=== PATIENT | male | born 1990 | race Two or more races ===

== ENCOUNTER 2020-09-15 22:36 | Emergency (ER) | payer SELFPAY ==
[~2020-09-15] VITALS: Ht 182.9 cm; Wt 105.0 kg
[2020-09-15] MEDS ORDERED: LEVETIRACETAM 500MG PREMIX 100 ML IV ONE (23:00)
[2020-09-15] MEDS ORDERED: SODIUM CHLORIDE 0.9% 1,000 ML IV ONE (23:00)
[2020-09-15 23:24] LABS: CHLORIDE 109 mEq/L (98-107)
[2020-09-16 00:03] LABS: CLARITY URINE CLEAR (CLEAR); COLOR URINE YELLOW (YELLOW); KETONES URINE NEGATIVE (NEGATIVE); LEUKOCYTE ESTERASE URINE NEGATIVE (NEGATIVE); NITRITE URINE NEGATIVE (NEGATIVE); OCCULT BLOOD URINE NEGATIVE (NEGATIVE); PROTEIN URINE NEGATIVE (NEGATIVE); SPECIFIC GRAVITY URINE 1.007 (1.005-1.030); UROBILINOGEN URINE 0.2 E.U./dL (0.2-1.0)
[2020-09-16 00:13] LABS: *AMPHETAMINES SCREEN URINE NEGATIVE (NEGATIVE); *BARBITURATES SCREEN URINE NEGATIVE (NEGATIVE)
[2020-09-16 00:14] LABS: *BENZODIAZEPINES SCREEN URINE NEGATIVE (NEGATIVE); *COCAINE SCREEN URINE NEGATIVE (NEGATIVE); METHADONE URINE SCREEN NEGATIVE (NEGATIVE); OPIATES URINE SCREEN NEGATIVE (NEGATIVE); PHENCYCLIDINE URINE SCREEN NEGATIVE (NEGATIVE)
[2020-09-16 00:15] LABS: CANNABINOID URINE SCREEN NEGATIVE (NEGATIVE)
[2020-09-16] MEDS ORDERED: ACETAMINOPHEN 325MG TABLET PO ONE (00:15)
[2020-09-16 02:50] VITALS: BP 120/67
== END 2020-09-16 02:51 | disposition home or self-care (01) ==
LOC: ER 22:36
DX: G93.40 Encephalopathy, unspecified (principal); R56.9 Unspecified convulsions; R94.5 Abnormal results of liver function studies
CPT/HCPCS: 36415; 80053; 80305; 81003; 93005; 96365; 99284; J1953; J7030